=== PATIENT | female | born 1935 | race Caucasian/White ===

== ENCOUNTER 2017-03-29 08:08 | Inpatient (IN) | payer MEDICARE ==
[~2017-03-29] VITALS: Ht 149.9 cm; Wt 47.9 kg
[2017-03-29] MEDS ORDERED: SODIUM CHLORIDE 0.9% 1,000 ML IV ONE (08:28)
[2017-03-29] MEDS ORDERED: ALBUTEROL/IPRATROPIUM 2.5MG/0.5MG, 3 ML NPPB ONE (08:30)
[2017-03-29] MEDS ORDERED: ALBUTEROL/IPRATROPIUM 2.5MG/0.5MG, 3 ML ONE (08:49)
[2017-03-29] MEDS ORDERED: PLEASE ENTER ALLERGIES MC SCH ×2 (09:00)
[2017-03-29 09:04] LABS: BLOOD UREA NITROGEN 29 mg/dL (7-18)
[2017-03-29] MEDS ORDERED: HYDROcodone/APAP 5/325 TABLET PO ONE (09:23)
[2017-03-29 09:24] LABS: IS PT STATUS REG ER OR PRE ER? NO
[2017-03-29] MEDS ORDERED: HYDROcodone/APAP 5/325 TABLET ONE (09:28)
[2017-03-29] MEDS ORDERED: LEVOFLOXACIN/PMX 750MG/150ML 150 ML ONE (09:28)
[2017-03-29] MEDS ORDERED: LEVOFLOXACIN/PMX 750MG/150ML 150 ML IV ONE (09:30)
[2017-03-29] MEDS ORDERED: SODIUM CHLORIDE 0.9% 1,000ML IVBOLUS ONE (09:30)
[2017-03-29] MEDS: PLEASE ENTER HEIGHT AND WEIGHT MC SCH ×2 (09:39→15:15)
[2017-03-29] MEDS ORDERED: PRED10TA PO (09:56)
[2017-03-29] MEDS ORDERED: FLUC200T PO (09:56)
[2017-03-29] MEDS ORDERED: MULT1TAB18 PO (09:56)
[2017-03-29] MEDS ORDERED: HYDR-3240 PO (09:56)
[2017-03-29] MEDS ORDERED: GABA300C10 PO (09:56)
[2017-03-29] MEDS ORDERED: DOXY100T PO (09:56)
[2017-03-29] MEDS ORDERED: FLUT1DIS3 INH (09:56)
[2017-03-29] MEDS ORDERED: SERT25TA3 PO (09:56)
[2017-03-29] MEDS ORDERED: BENZ100C4 PO (09:56)
[2017-03-29] MEDS ORDERED: NICO1PAT10 TD (10:46)
[2017-03-29 12:13] VITALS: BP 115/62
[2017-03-29] MEDS ORDERED: ONDANSETRON 2MG/ML, 2ML IVP PRN (12:30)
[2017-03-29] MEDS ORDERED: GUAIFENESIN/DM 200-20MG, 10ML UDC PO PRN (12:30)
[2017-03-29] MEDS ORDERED: BISACODYL 10 MG SUPP PR PRN (12:30)
[2017-03-29] MEDS: [UNRECOGNIZED DRUG - MIXTURE] HOMEMEDPO SCH (12:30)
[2017-03-29] MEDS ORDERED: PHARMACY MAY ADJ FOR RENAL FX MC PRN (12:30)
[2017-03-29] MEDS ORDERED: LABETALOL 5MG/ML, 20ML IV PRN (12:30)
[2017-03-29] MEDS ORDERED: ONDANSETRON ODT 4 MG PO PRN (12:30)
[2017-03-29] MEDS ORDERED: ACETAMINOPHEN 325 MG TABLET PO PRN (12:30)
[2017-03-29] MEDS: ALBUTEROL/IPRATROPIUM 2.5MG/0.5MG, 3 ML NPPB SCH ×3 (13:30→22:00)
[2017-03-29 14:10] VITALS: BP 25/73
[2017-03-29] MEDS ORDERED: POTASSIUM PHOSPHATE 44 MEQ in SODIUM CHLORIDE 0.9% 500 ML IV ONE (14:30)
[2017-03-29 14:51] LABS: IS PT STATUS REG ER OR PRE ER? NO
[2017-03-29] MEDS: ENOXAPARIN 30 MG/0.3 ML SQ SCH (15:08)
[2017-03-29] MEDS: PIPERACILLIN/TAZO/PMX 4.5GM 100 ML IVPB SCH ×2 (15:08→21:13)
[2017-03-29] MEDS: NICOTINE 7 MG/24 HR PATCH.TD24 TD SCH (15:09)
[2017-03-29] MEDS: SODIUM CHLORIDE 0.9% 1,000 ML IV SCH (15:14)
[2017-03-29] MEDS: methylPREDNISolone SOD SUCC 125 MG/2 ML IVPush SCH (17:49)
[2017-03-29] MEDS ORDERED: ALPR0.25 PO (18:29)
[2017-03-29] MEDS ORDERED: GABAPENTIN 300 MG CAPSULE PO SCH (21:00)
[2017-03-29 21:32] LABS: IS PT STATUS REG ER OR PRE ER? NO
[2017-03-29 21:46] VITALS: BP 127/66
[2017-03-30] MEDS: PLEASE ENTER HEIGHT AND WEIGHT MC SCH (01:00)
[2017-03-30 01:55] VITALS: BP 129/73
[2017-03-30] MEDS: ALBUTEROL/IPRATROPIUM 2.5MG/0.5MG, 3 ML NPPB SCH ×7 (02:00→22:03)
[2017-03-30] MEDS: methylPREDNISolone SOD SUCC 125 MG/2 ML IVPush SCH ×3 (02:10→16:37)
[2017-03-30] MEDS: HYDROcodone/APAP 5/325 TABLET PO PRN ×4 (02:11→16:46)
[2017-03-30] MEDS: SODIUM CHLORIDE 0.9% 1,000 ML IV SCH ×2 (02:13→07:41)
[2017-03-30] MEDS: PIPERACILLIN/TAZO/PMX 4.5GM 100 ML IVPB SCH ×3 (05:38→21:54)
[2017-03-30 05:41] LABS: BLOOD UREA NITROGEN 24 mg/dL (7-18)
[2017-03-30 05:46] LABS: ASPARTATE AMINO TRANSFERASE 7 U/L (15-37)
[2017-03-30 08:20] VITALS: BP 118/72
[2017-03-30] MEDS: [UNRECOGNIZED DRUG - MIXTURE] HOMEMEDPO SCH (09:00)
[2017-03-30] MEDS: GABAPENTIN 300 MG CAPSULE PO SCH ×2 (10:16→16:37)
[2017-03-30] MEDS: FLUTICASONE/VILANTEROL 100-25MCG/INH INH SCH (10:16)
[2017-03-30 15:17] VITALS: BP 126/63
[2017-03-30] MEDS: DOCUSATE 100 MG CAPSULE PO PRN (16:37)
[2017-03-30] MEDS: NICOTINE 7 MG/24 HR PATCH.TD24 TD SCH (16:37)
[2017-03-30] MEDS: SERTRALINE 50MG TABLET PO SCH (16:37)
[2017-03-30] MEDS: ENOXAPARIN 30 MG/0.3 ML SQ SCH (16:37)
[2017-03-30 19:05] VITALS: BP 107/70
[2017-03-31] MEDS: SODIUM CHLORIDE 0.9% 1,000 ML IV SCH (00:26)
[2017-03-31 01:40] VITALS: BP 135/65
[2017-03-31] MEDS: methylPREDNISolone SOD SUCC 125 MG/2 ML IVPush SCH (02:24)
[2017-03-31] MEDS: HYDROcodone/APAP 5/325 TABLET PO PRN ×4 (03:50→22:13)
[2017-03-31] MEDS: ALBUTEROL/IPRATROPIUM 2.5MG/0.5MG, 3 ML NPPB SCH ×6 (04:13→22:00)
[2017-03-31 04:45] LABS: BLOOD UREA NITROGEN 22 mg/dL (7-18)
[2017-03-31] MEDS: PIPERACILLIN/TAZO/PMX 4.5GM 100 ML IVPB SCH (06:00)
[2017-03-31] MEDS ORDERED: ALBUTEROL/IPRATROPIUM 2.5MG/0.5MG, 3 ML NPPB PRN (07:30)
[2017-03-31 08:09] VITALS: BP 138/79
[2017-03-31] MEDS: [UNRECOGNIZED DRUG - MIXTURE] HOMEMEDPO SCH (08:14)
[2017-03-31] MEDS: GABAPENTIN 300 MG CAPSULE PO SCH ×2 (08:14→15:59)
[2017-03-31] MEDS: FLUTICASONE/VILANTEROL 100-25MCG/INH INH SCH (08:14)
[2017-03-31] MEDS: PIPERACILLIN/TAZO 3.375 GM in SODIUM CHLORIDE 0.9% 50 ML IV SCH ×3 (09:00→20:04)
[2017-03-31 13:41] VITALS: BP 140/75
[2017-03-31] MEDS: SERTRALINE 50MG TABLET PO SCH (15:59)
[2017-03-31] MEDS: ENOXAPARIN 30 MG/0.3 ML SQ SCH (15:59)
[2017-03-31] MEDS: NICOTINE 7 MG/24 HR PATCH.TD24 TD SCH (15:59)
[2017-03-31 18:38] VITALS: BP 144/75
[2017-04-01] MEDS: ALBUTEROL/IPRATROPIUM 2.5MG/0.5MG, 3 ML NPPB SCH ×6 (02:00→20:08)
[2017-04-01] MEDS: PIPERACILLIN/TAZO 3.375 GM in SODIUM CHLORIDE 0.9% 50 ML IV SCH ×4 (02:02→21:07)
[2017-04-01] MEDS: HYDROcodone/APAP 5/325 TABLET PO PRN ×3 (02:53→16:38)
[2017-04-01 03:05] VITALS: BP 151/54
[2017-04-01 04:55] LABS: ASPARTATE AMINO TRANSFERASE 11 U/L (15-37); BLOOD UREA NITROGEN 22 mg/dL (7-18)
[2017-04-01 07:18] VITALS: BP 153/89
[2017-04-01] MEDS: GABAPENTIN 300 MG CAPSULE PO SCH ×2 (08:02→16:24)
[2017-04-01] MEDS: DOCUSATE 100 MG CAPSULE PO PRN (08:05)
[2017-04-01] MEDS: SERTRALINE 50MG TABLET PO SCH (09:00)
[2017-04-01] MEDS: FLUTICASONE/VILANTEROL 100-25MCG/INH INH SCH (09:00)
[2017-04-01] MEDS: NICOTINE 7 MG/24 HR PATCH.TD24 TD SCH (09:00)
[2017-04-01] MEDS: [UNRECOGNIZED DRUG - MIXTURE] HOMEMEDPO SCH (09:00)
[2017-04-01 14:00] VITALS: BP 135/80
[2017-04-01] MEDS: ENOXAPARIN 30 MG/0.3 ML SQ SCH (16:24)
[2017-04-01 19:52] VITALS: BP 144/85
[2017-04-02 00:03] VITALS: BP 139/73
[2017-04-02] MEDS: PIPERACILLIN/TAZO 3.375 GM in SODIUM CHLORIDE 0.9% 100 ML IV SCH ×2 (02:38→07:48)
[2017-04-02] MEDS: ALBUTEROL/IPRATROPIUM 2.5MG/0.5MG, 3 ML NPPB SCH ×6 (02:45→23:20)
[2017-04-02] MEDS: HYDROcodone/APAP 5/325 TABLET PO PRN ×4 (03:08→16:09)
[2017-04-02 06:00] LABS: BLOOD UREA NITROGEN 22 mg/dL (7-18)
[2017-04-02 06:03] LABS: ASPARTATE AMINO TRANSFERASE 11 U/L (15-37)
[2017-04-02 07:13] VITALS: BP 147/81
[2017-04-02] MEDS: GABAPENTIN 300 MG CAPSULE PO SCH ×2 (07:48→16:10)
[2017-04-02] MEDS: [UNRECOGNIZED DRUG - MIXTURE] HOMEMEDPO SCH (07:48)
[2017-04-02] MEDS: FLUTICASONE/VILANTEROL 100-25MCG/INH INH SCH (07:48)
[2017-04-02] MEDS ORDERED: MEROPENEM 1 GM in SODIUM CHLORIDE 0.9% 100 ML IV SCH (10:30)
[2017-04-02 12:57] VITALS: BP 108/69
[2017-04-02] MEDS: ENOXAPARIN 30 MG/0.3 ML SQ SCH (16:10)
[2017-04-02] MEDS: SERTRALINE 50MG TABLET PO SCH (16:10)
[2017-04-02] MEDS: NICOTINE 7 MG/24 HR PATCH.TD24 TD SCH (16:10)
[2017-04-02] MEDS ORDERED: PIPERACILLIN/TAZO/PMX 4.5GM 100 ML IV SCH (17:30)
[2017-04-02] MEDS: PIPERACILLIN/TAZO/PMX 4.5GM 100 ML IV SCH ×2 (17:44→23:45)
[2017-04-02] MEDS: CIPROFLOXACIN 500 MG TABLET PO SCH (20:40)
[2017-04-02 21:07] VITALS: BP 137/82
[2017-04-03] MEDS: ALBUTEROL/IPRATROPIUM 2.5MG/0.5MG, 3 ML NPPB SCH ×6 (02:15→22:40)
[2017-04-03] MEDS: HYDROcodone/APAP 5/325 TABLET PO PRN ×4 (03:57→17:12)
[2017-04-03 04:06] VITALS: BP 137/79
[2017-04-03] MEDS: PIPERACILLIN/TAZO/PMX 4.5GM 100 ML IV SCH ×4 (05:10→22:51)
[2017-04-03 05:19] LABS: BLOOD UREA NITROGEN 21 mg/dL (7-18)
[2017-04-03 08:11] VITALS: BP 129/72
[2017-04-03] MEDS: [UNRECOGNIZED DRUG - MIXTURE] HOMEMEDPO SCH (09:00)
[2017-04-03] MEDS: GABAPENTIN 300 MG CAPSULE PO SCH ×2 (09:52→17:02)
[2017-04-03] MEDS: FLUTICASONE/VILANTEROL 100-25MCG/INH INH SCH (09:53)
[2017-04-03] MEDS: CIPROFLOXACIN 500 MG TABLET PO SCH ×2 (09:53→20:35)
[2017-04-03 13:57] VITALS: BP 123/73
[2017-04-03] MEDS: NICOTINE 7 MG/24 HR PATCH.TD24 TD SCH (17:01)
[2017-04-03] MEDS: SERTRALINE 50MG TABLET PO SCH (17:02)
[2017-04-03] MEDS: ENOXAPARIN 30 MG/0.3 ML SQ SCH (17:06)
[2017-04-03 20:04] VITALS: BP 100/66
[2017-04-04 02:16] VITALS: BP 107/65
[2017-04-04] MEDS: HYDROcodone/APAP 5/325 TABLET PO PRN ×4 (02:25→17:09)
[2017-04-04] MEDS: ALBUTEROL/IPRATROPIUM 2.5MG/0.5MG, 3 ML NPPB SCH ×6 (02:30→20:40)
[2017-04-04] MEDS: PIPERACILLIN/TAZO/PMX 4.5GM 100 ML IV SCH (05:26)
[2017-04-04 05:43] LABS: ASPARTATE AMINO TRANSFERASE 14 U/L (15-37); BLOOD UREA NITROGEN 21 mg/dL (7-18); C-REACTIVE PROTEIN, QUANT 0.93 mg/dL (0.02-0.49)
[2017-04-04 05:52] LABS: DIFF TOTAL CELLS COUNTED 100 CELL DIFF
[2017-04-04 05:54] LABS: VERIFY COUNTS? YES
[2017-04-04 07:20] VITALS: BP 123/75
[2017-04-04] MEDS: [UNRECOGNIZED DRUG - MIXTURE] HOMEMEDPO SCH (09:00)
[2017-04-04] MEDS: CIPROFLOXACIN 500 MG TABLET PO SCH ×2 (09:11→20:25)
[2017-04-04] MEDS: FLUTICASONE/VILANTEROL 100-25MCG/INH INH SCH (09:11)
[2017-04-04] MEDS: GABAPENTIN 300 MG CAPSULE PO SCH ×2 (09:11→16:59)
[2017-04-04] MEDS: MEROPENEM 1 GM in SODIUM CHLORIDE 0.9% 50 ML IV SCH ×2 (12:28→20:25)
[2017-04-04 12:42] VITALS: BP 103/55
[2017-04-04] MEDS: SERTRALINE 50MG TABLET PO SCH (16:59)
[2017-04-04] MEDS: ENOXAPARIN 30 MG/0.3 ML SQ SCH (16:59)
[2017-04-04] MEDS: NICOTINE 7 MG/24 HR PATCH.TD24 TD SCH (17:00)
[2017-04-04 19:04] VITALS: BP 107/67
[2017-04-05 03:11] VITALS: BP 128/74
[2017-04-05] MEDS: MEROPENEM 1 GM in SODIUM CHLORIDE 0.9% 50 ML IV SCH ×2 (04:24→12:28)
[2017-04-05 05:21] LABS: ASPARTATE AMINO TRANSFERASE 11 U/L (15-37); BLOOD UREA NITROGEN 21 mg/dL (7-18)
[2017-04-05] MEDS: HYDROcodone/APAP 5/325 TABLET PO PRN ×3 (06:26→16:07)
[2017-04-05 07:10] VITALS: BP 118/64
[2017-04-05] MEDS: ALBUTEROL/IPRATROPIUM 2.5MG/0.5MG, 3 ML NPPB SCH ×3 (08:45→14:03)
[2017-04-05] MEDS: [UNRECOGNIZED DRUG - MIXTURE] HOMEMEDPO SCH (09:00)
[2017-04-05] MEDS: GABAPENTIN 300 MG CAPSULE PO SCH ×2 (10:03→15:55)
[2017-04-05] MEDS: FLUTICASONE/VILANTEROL 100-25MCG/INH INH SCH (10:03)
[2017-04-05] MEDS: CIPROFLOXACIN 500 MG TABLET PO SCH (10:03)
[2017-04-05 13:00] VITALS: BP 121/71
[2017-04-05] MEDS: SERTRALINE 50MG TABLET PO SCH (15:50)
[2017-04-05] MEDS: NICOTINE 7 MG/24 HR PATCH.TD24 TD SCH (15:51)
[2017-04-05] MEDS: ENOXAPARIN 30 MG/0.3 ML SQ SCH (15:51)
[2017-04-05] MEDS ORDERED: CIPR500T87 PO (16:12)
[2017-04-05] MEDS ORDERED: GABA300C10 PO (16:12)
[2017-04-05] MEDS ORDERED: GUAI5SYR PO (16:12)
[2017-04-05] MEDS ORDERED: PRED20TA PO (16:12)
== END 2017-04-05 18:00 | DRG 871 ==
LOC: ED 08:32 → EDIP 09:31 → 3NW 11:42
PROVIDERS: ADMIT Hospitalist; ATTEND Hospitalist
DX: A41.52 Sepsis due to Pseudomonas (principal); J15.1 Pneumonia due to Pseudomonas; E43 Unspecified severe protein-calorie malnutrition; J96.21 Acute and chronic respiratory failure with hypoxia; J44.1 Chronic obstructive pulmonary disease with (acute) exacerbation; J44.0 Chronic obstructive pulmonary disease with (acute) lower respiratory infection; G62.9 Polyneuropathy, unspecified; I44.4 Left anterior fascicular block; S31.809A Unspecified open wound of unspecified buttock, initial encounter; S31.000A Unspecified open wound of lower back and pelvis without penetration into retroperitoneum, initial encounter; B96.89 Other specified bacterial agents as the cause of diseases classified elsewhere; D64.9 Anemia, unspecified; E83.39 Other disorders of phosphorus metabolism; F17.200 Nicotine dependence, unspecified, uncomplicated; G89.29 Other chronic pain; H35.30 Unspecified macular degeneration; H91.90 Unspecified hearing loss, unspecified ear; Z88.2 Allergy status to sulfonamides; Z96.643 Presence of artificial hip joint, bilateral; Z99.81 Dependence on supplemental oxygen; Z68.21 Body mass index [BMI] 21.0-21.9, adult
CPT/HCPCS: 36415; 71010; 74176; 74230; 80048; 80053; 81003; 82040; 83605; 83735; 84100; 84145; 84484; 85025; 85610; 85651; 85730; 86140; 87040; 87070; 87081; 87186; 87205; 93005; 94640; 96365; J1650; J1956; J2185; J2543; J7620; J2930; J7030; J7040; J7512